=== PATIENT | male | born 1955 | race African-American/Black ===

== ENCOUNTER 2017-09-03 01:01 | Emergency (ER) | payer MEDICAID ==
[~2017-09-03] VITALS: Ht 180.3 cm; Wt 95.0 kg
[2017-09-03] MEDS ORDERED: ONDANSETRON 4MG ODT PO ONE (04:30)
[2017-09-03] MEDS ORDERED: KETOROLAC 30MG/ML VIAL IM ONE (04:30)
[2017-09-03 06:05] VITALS: BP 151/94
== END 2017-09-03 06:13 | disposition home or self-care (01) ==
LOC: ER 01:04
DX: S16.1XXA Strain of muscle, fascia and tendon at neck level, initial encounter (principal); M54.5 Low back pain; G89.29 Other chronic pain; I10 Essential (primary) hypertension; X58.XXXA Exposure to other specified factors, initial encounter; Y93.9 Activity, unspecified; F14.10 Cocaine abuse, uncomplicated; Y92.9 Unspecified place or not applicable; F17.210 Nicotine dependence, cigarettes, uncomplicated; E03.9 Hypothyroidism, unspecified; Z90.89 Acquired absence of other organs
CPT/HCPCS: 96372; 99283; J1885; Q0162; Z7610